=== PATIENT | male | born 1990 | race African-American/Black ===

== ENCOUNTER 2016-12-18 04:10 | Inpatient (IN) | payer OTHER ==
[~2016-12-18] VITALS: Ht 182.9 cm; Wt 163.0 kg
[~2016-12-18 04:10] MED LIST: ESCITALOPRAM OX10 MG PO; LIDOCAINE20 MG/1 M5 PO; MOTRIN800 MG PO; NOHOMEMEDS; VIBRAMYCIN100 MG PO; VICODIN 5-3001 EACH PO
[2016-12-18 09:59] VITALS: BP 129/75
[2016-12-18 10:00] VITALS: BP 129/75
[2016-12-18 15:33] VITALS: BP 109/58
[2016-12-18 22:15] VITALS: BP 129/74
[2016-12-19 07:22] VITALS: BP 119/68
[2016-12-19 15:38] VITALS: BP 115/74
[2016-12-19 22:06] VITALS: BP 116/74
[2016-12-20 07:48] VITALS: BP 106/55
[2016-12-20 15:49] VITALS: BP 116/71
[2016-12-20 21:22] VITALS: BP 122/70
[2016-12-21 07:44] VITALS: BP 107/54
== END 2016-12-21 12:32 | disposition home or self-care (01) | DRG 882 ==
LOC: 1WEST 04:10
DX: F43.20 Adjustment disorder, unspecified (principal); F11.20 Opioid dependence, uncomplicated; F12.90 Cannabis use, unspecified, uncomplicated; F10.10 Alcohol abuse, uncomplicated; R45.851 Suicidal ideations
CPT/HCPCS: 87493; 97150 GO; 97165 GO; Q0177

== ENCOUNTER 2017-10-17 21:31 | Emergency (ER) | payer OTHER ==
[~2017-10-17] VITALS: Ht 182.9 cm; Wt 85.2 kg
[2017-10-17 23:09] VITALS: BP 114/59
== END 2017-10-17 23:10 ==
LOC: EME 21:31
DX: S93.402A Sprain of unspecified ligament of left ankle, initial encounter (principal); X50.1XXA Overexertion from prolonged static or awkward postures, initial encounter; Y93.67 Activity, basketball; Y92.149 Unspecified place in prison as the place of occurrence of the external cause; Z87.891 Personal history of nicotine dependence
CPT/HCPCS: 73610; 99281; 99283